=== PATIENT | female | born 1950 | race Caucasian/White ===

== ENCOUNTER 2020-10-06 11:53 | Emergency (ER) | payer OTHER, SELFPAY ==
[~2020-10-06] VITALS: Ht 157.5 cm; Wt 59.0 kg
[2020-10-06 11:55] VITALS: BP_SYST 142; BP_SYST 172
--- NOTE | 2020-10-06 12:00 | NUR ---
SEEN AND EVALUATED BY DR ANDREWS, SPOUSE WITH PT.
[2020-10-06 12:22] VITALS: BP_SYST 105
--- NOTE | 2020-10-06 12:45 | NUR ---
PT STATES THAT SHE WAS EXPOSED IN OFFICE 10 DAYS AGO AND NOW WITH SYMPTOMS. STATES SOB, FEVERS, FATIGUE, LOSS OF SMELL, HEADACHES. SPOUSE HERE WITH SAME SYMPTOMS
--- NOTE | 2020-10-06 14:33 | NUR ---
PT TOLD ADMITTING THEY WERE NOT GOING TO WAIT. PT ELOPED
--- NOTE | 2020-10-06 16:41 | NUR ---
RECIEVED +ANTIGEN COVID, CALL PLACED TO DR HAND AND RESULTS GIVEN.
== END 2020-10-06 14:33 | disposition left against medical advice (07) ==
LOC: SED 11:53
DX: U07.1 COVID-19 (principal); R63.0 Anorexia
CPT/HCPCS: 36415; 71045; 99284